=== PATIENT | female | born 1940 | race Caucasian/White ===

== ENCOUNTER → 2016-11-13 | Outpatient (CLI) | payer MEDICARE ==
[2014-01-18 09:36] VITALS: BP 150/75
[~2016-11-13] MED LIST: ATOR10TA60 PO; IOHEXOL 300 MG/ML 100ML VIAL. IV ONE; LEVO25TA4 PO; PRED20TA PO
--- NOTE | 2016-11-13 10:55 | KCIC ---
PROCEDURE Neck CT with and without contrast. HISTORY Temporal arteritis. TECHNIQUE Computed tomographic images of the neck were obtained prior to and following the administration of 95 cc Omnipaque 300 intravenous contrast. One or more of the following individualized dose reduction techniques were utilized for this examination: 1. Automated exposure control; 2. Adjustment of the mA and/or kV according to patient size; 3. Use of iterative reconstruction technique. COMPARISON None. FINDINGS The visualized portions of the brain are unremarkable. The visualized portions the orbits and paranasal sinuses are unremarkable. The mastoid air cells are clear. The parotid and submandibular glands are unremarkable. The thyroid gland is unremarkable. No pathologically enlarged lymph node is seen. There is an aberrant right subclavian artery, a normal aortic arch variant. The left vertebral artery is slightly dominant. There is partially calcified atherosclerotic plaque within the carotid bifurcations, with less than 25 percent stenosis. There is biapical pleural-parenchymal scarring. There is also suspected scarring within the lateral right upper lobe adjacent to the pleural fissure, likely postinfectious or postinflammatory. There are multiple missing teeth. The airway is midline and widely patent. There are degenerative changes throughout the cervical spine. The combination of disc bulges with endplate osteophytosis, facet and uncovertebral arthropathy results in mild right greater than left foraminal stenosis at C4-C5, mild left greater than right foraminal stenosis at C5-C6, and mild bilateral foraminal stenosis C6-C7. IMPRESSION 1. No acute finding. 2. Mild atherosclerotic plaque involving the carotid bifurcations, with less than 25 percent stenosis. 3. Multilevel degenerative change within the cervical spine. 4. Aberrant right subclavian artery. Electronically signed by: Katie Smith (Nov 13, 2016 10:54:31)
== END | disposition home or self-care (01) ==
LOC: KCIC CT 09:37
PROVIDERS: ATTEND Psychiatry & Neurology Neurology with Special Qualifications in Child Neurology
DX: M31.6 Other giant cell arteritis (principal); R68.84 Jaw pain; M48.02 Spinal stenosis, cervical region
CPT/HCPCS: 70492; 82565; Q9967